=== PATIENT | male | born 1980 | race Caucasian/White ===

== ENCOUNTER 2019-07-05 21:13 | Emergency (ER) | payer SELFPAY ==
[~2019-07-05] VITALS: Ht 195.6 cm; Wt 100.0 kg
[2019-07-05 21:20] VITALS: Ht 195.6 cm; Wt 100.0 kg
[2019-07-05] MEDS ORDERED: DOXYCYCLINE HY100 M2 PO (23:31)
[2019-07-05] MEDS ORDERED: HYDROCODONE-A1 UDTA2 PO (23:31)
[2019-07-05 23:40] VITALS: BP 141/90
== END 2019-07-05 23:41 | disposition home or self-care (01) ==
LOC: D.ER 21:13
DX: M79.671 Pain in right foot (principal)